=== PATIENT | female | born 1965 | race Caucasian/White ===

== ENCOUNTER 2024-05-30 08:33 | Emergency (ER) | payer MEDICAID, OTHER ==
[~2024-05-30] VITALS: Ht 170.2 cm; Wt 68.2 kg
[~2024-05-30 08:33] MED LIST: ALBU6.7H14 INH
[2024-05-30] MEDS ORDERED: AMOX500C2 PO (09:48)
[2024-05-30] MEDS ORDERED: CARB15DR91 LEFT EAR (09:50)
[2024-05-30 10:23] VITALS: BP 120/61; PULSE 60; RESP 14; TEMP 97.6; O2SAT 99
== END 2024-05-30 10:25 | disposition home or self-care (01) ==
LOC: ER 08:33
DX: H60.92 Unspecified otitis externa, left ear (principal); H61.22 Impacted cerumen, left ear; Z88.5 Allergy status to narcotic agent; Z79.899 Other long term (current) drug therapy; Z79.2 Long term (current) use of antibiotics
CPT/HCPCS: 99283

== ENCOUNTER 2024-08-17 13:49 | Emergency (ER) | payer MEDICAID ==
[~2024-08-17] VITALS: Ht 162.6 cm; Wt 75.0 kg
[~2024-08-17 13:49] MED LIST changes: +CARB15DR91 LEFT EAR
[2024-08-17 13:51] VITALS: TEMP 97.7
[2024-08-17] MEDS: magnesium sulf-water 2g/50mL 50 ML IV STA (15:00)
[2024-08-17] MEDS: methylPREDNISolone sod succ 125mg/2ml vial IV ONE (15:00)
[2024-08-17] MEDS: ipratropium/albuterol 3ml nebule NEB ONE (15:13)
[2024-08-17 15:15] VITALS: PULSE 65; PULSE 70; RESP 16; RESP 20; O2SAT 99
[2024-08-17] MEDS ORDERED: PRED20TA PO (15:31)
[2024-08-17 15:53] VITALS: BP 138/65; PULSE 68; RESP 18; O2SAT 98
== END 2024-08-17 15:54 | disposition home or self-care (01) ==
LOC: ER 13:50
DX: J44.1 Chronic obstructive pulmonary disease with (acute) exacerbation (principal); Z20.822 Contact with and (suspected) exposure to COVID-19; Z88.5 Allergy status to narcotic agent; Z79.899 Other long term (current) drug therapy
CPT/HCPCS: 36415; 71045; 87502; 87503; 87811; 94640; 96365; 96375; 99284; J2919; 94760